=== PATIENT | male | born 1985 | race Caucasian/White ===

== ENCOUNTER 2017-02-23 09:14 | Emergency (ER) | payer MEDICAID, OTHER ==
[2017-02-23] MEDS ORDERED: HYDROcod/ACETAM 5/325 MG TABLET PO STA (10:43)
[2017-02-23] MEDS ORDERED: CLINDAMYCIN 900 MG/50 ML 50 ML IV ONE ×2 (10:43→10:52)
--- NOTE | 2017-02-23 10:46 | ED Physician Documentation ---
PD HPI HEENT - Stated complaint Stated Complaint: DENTAL PAIN - Chief complaint Chief Complaint: General - History obtained from History obtained from: Patient - History of Present Illness Timing - onset: Last night Timing - details: Gradual onset Location: Tooth Associated symptoms: Facial swelling - Additional information Additional information: The patient is a 32-year-old who presents with toothache and left facial swelling. His symptoms started last night, and are worse this morning. He reports mild associated headache. He denies fever or sore throat. He reports a history of toothache in the past, but never this bad. Review of Systems Constitutional: denies: Fever Eyes: denies: Irritation Ears: denies: Ear pain Nose: denies: Congestion Throat: denies: Sore throat Cardiac: denies: Chest pain / pressure Respiratory: denies: Dyspnea, Cough GI: denies: Nausea, Vomiting Skin: denies: Rash Musculoskeletal: denies: Neck pain Neurologic: reports: Headache (mild) PD PAST MEDICAL HISTORY - Past Medical History Cardiovascular: Hypertension Respiratory: Other Neuro: CVA - Past Surgical History Past Surgical History: Yes - Present Medications Home Medications: Ambulatory Orders Medication Instructions Recorded Confirmed Clindamycin [Cleocin] 300 mg PO Q6H 7 Days 02/23/17 HYDROcod/ACETAM 5/325 [Satanta 5/325] 1 - 2 ea PO Q6H PRN #20 tablet 02/23/17 Oxycodone HCl/Acetaminophen 1 - 2 each PO Q6H PRN #10 tablet 02/24/17 [Percocet 5-325 mg Tablet] - Allergies Allergies/Adverse Reactions: Allergies Allergy/AdvReac Type Severity Reaction Status Date / Time No Known Drug Allergies Allergy Verified 02/23/17 09:24 - Social History Does the pt smoke?: No Smoking Status: Never smoker Does the pt drink ETOH?: No Does the pt have substance abuse?: No - Immunizations Immunizations are current?: Yes - POLST Patient has POLST: No PD ED PE NORMAL - Vitals Vital signs reviewed: Yes (Borderline hypertension initially.) - General General: Alert and oriented X 3, Well developed/nourished - HEENT HEENT: Atraumatic, PERRL, EOMI, Ears normal, Pharynx benign, Other (Left facial swelling in the maxillary region. Most of his molars have been extracted. Left upper molar is markedly decayed with associated tenderness to palpation.) - Cardiac Cardiac: RRR, No murmur - Respiratory Respiratory: No respiratory distress, Clear bilaterally - Abdomen Abdomen: Soft, Non tender - Back Back: No CVA TTP - Derm Derm: No rash - Extremities Extremities: No edema - Neuro Neuro: Alert and oriented X 3, No motor deficit, Normal speech Results - Vitals Vitals: Oxygen O2 Source Room air PD MEDICAL DECISION MAKING - ED course Complexity details: re-evaluated patient, considered differential, d/w patient ED course: The patient's presentation is significant for dental abscess. There is no clinical indication of meningitis, peritonsillar or retropharyngeal abscess. Treatment in the Emergency Department included Clindamycin, 600 mg IV, and Vicodin one tablet orally I discussed with him the likely course of symptoms, antibiotic treatment, outpatient follow up, as well as potentially worrisome signs or symptoms that should prompt re-evaluation in the Emergency Dept. He is being discharged with prescriptions for Clindamicin and Vicodin, 20 tablets. Departure - Departure Disposition: 01 Home, Self Care Clinical Impression: Dental abscess Instructions: ED Abscess Dental Prescriptions: Clindamycin [Cleocin] 300 mg PO Q6H 7 Days HYDROcod/ACETAM 5/325 [Satanta 5/325] 1 - 2 ea PO Q6H PRN #20 tablet PRN Reason: Pain Comments: Take the antibiotic 4 times daily as prescribed. You can use Vicodin as prescribed if needed for pain. Follow up with a dentist as soon as possible. Return to the emergency department if you develop increasing facial swelling, or otherwise worsening symptoms. Discharge Date/Time: 02/23/17 12:17
[2017-02-23] MEDS ORDERED: HYDROcod/ACETAM 5/325 MG TABLET ONE (10:52)
[2017-02-23 12:17] VITALS: BP 127/73
== END 2017-02-23 12:17 | disposition home or self-care (01) ==
LOC: ED 09:14
DX: K04.7 Periapical abscess without sinus (principal); I10 Essential (primary) hypertension
CPT/HCPCS: 96365; 99283; A9270

== ENCOUNTER 2017-02-24 09:57 | Emergency (ER) | payer MEDICAID ==
--- NOTE | 2017-02-24 12:14 | ED Physician Documentation ---
PD HPI HEENT - Stated complaint Stated Complaint: TOOTH PAIN - Chief complaint Chief Complaint: Heent - History obtained from History obtained from: Patient - History of Present Illness Timing - onset: How many days ago (2) Timing - duration: Days (2) Timing - details: Gradual onset Pain level max: 6 Pain level now: 5 Location: Tooth (upper molar, L) Improves: Nothing Worsens: Swalllowing Associated symptoms: Facial swelling. No: Fever, Congestion, Rhinorrhea, Trismus, Unable to swallow Similar symptoms before: Diagnosis (dental caries) Recently seen: Emergency Dept (yesterday, started on clindamycin, swelling worse today.) Review of Systems Constitutional: denies: Fever, Chills Respiratory: denies: Cough GI: denies: Nausea, Vomiting, Diarrhea Skin: denies: Rash Musculoskeletal: denies: Neck pain, Back pain Neurologic: denies: Headache PD PAST MEDICAL HISTORY - Past Medical History Past Medical History: Yes Cardiovascular: Hypertension Respiratory: Other Neuro: CVA - Past Surgical History Past Surgical History: Yes - Present Medications Home Medications: Ambulatory Orders Medication Instructions Recorded Confirmed Clindamycin [Cleocin] 300 mg PO Q6H 7 Days 02/23/17 HYDROcod/ACETAM 5/325 [Savage 5/325] 1 - 2 ea PO Q6H PRN #20 tablet 02/23/17 Oxycodone HCl/Acetaminophen 1 - 2 each PO Q6H PRN #10 tablet 02/24/17 [Percocet 5-325 mg Tablet] - Allergies Allergies/Adverse Reactions: Allergies Allergy/AdvReac Type Severity Reaction Status Date / Time No Known Drug Allergies Allergy Verified 02/23/17 09:24 - Social History Does the pt smoke?: No Smoking Status: Never smoker Does the pt drink ETOH?: No Does the pt have substance abuse?: No - Immunizations Immunizations are current?: Yes - POLST Patient has POLST: No PD ED PE NORMAL - Vitals Vital signs reviewed: Yes - General General: Alert and oriented X 3, No acute distress, Well developed/nourished - HEENT HEENT: PERRL, Moist mucous membranes, Other (L upper gingival abscess. mild facial swelling.) - Neck Neck: Supple, no meningeal sign - Cardiac Cardiac: RRR, Strong equal pulses - Respiratory Respiratory: No respiratory distress, Clear bilaterally - Abdomen Abdomen: Soft, Non tender, Non distended - Derm Derm: Warm and dry - Neuro Neuro: Alert and oriented X 3 - Psych Psych: Normal mood, Normal affect Results - Vitals Vitals: Vital Signs - 24 hr 02/24/17 02/24/17 10:03 14:15 Temperature 36.3 C L 37.2 C Heart Rate 75 79 Respiratory 17 22 Rate Blood Pressure 147/91 H 138/88 H O2 Saturation 100 100 Oxygen O2 Source Room air Procedures - Abscess I&D (location) L upper gingival Preparation: Confirmed with ultrasound, Marcaine 0.5% Incision: Needle aspiration (18g) Other: Pt tolerated well, Antibiotic prescribed (on clindamycin) PD MEDICAL DECISION MAKING - ED course Complexity details: reviewed old records, re-evaluated patient, considered differential, d/w patient, d/w family (father) ED course: Patient with a left upper gingival abscess. This was drained with needle aspiration in the emergency department after being confirmed by bedside ultrasound. He was also given a dose of Rocephin intramuscularly here. Will continue the clindamycin at home and follow-up with a dentist for further care of his tooth and likely extraction. No fevers. Tolerating p.o. without difficulty. No trismus. Patient counseled regarding signs and symptoms for which I believe and urgent re-evaluation would be necessary. Patient with good understanding of and agreement to plan and is comfortable going home at this time This document was made in part using voice recognition software. While efforts are made to proofread this document, sound alike and grammatical errors may occur. Departure - Departure Disposition: 01 Home, Self Care Clinical Impression: Dental abscess Condition: Good Instructions: ED Abscess Dental Follow-Up: your,dentist as soon as possible [Other] Prescriptions: Oxycodone HCl/Acetaminophen [Percocet 5-325 mg Tablet] 1 - 2 each PO Q6H PRN # 10 tablet PRN Reason: pain Comments: Continue your anitbiotics at home. Return if you worsen. Do not drink alcohol or drive while on narcotic pain medicine. Note that many narcotic pain relievers also contain tylenol/acetaminophen. Please ensure that your total dose of acetaminophen from all sources does not exceed 3 grams (3000mg) per day. You may constipated on this medication, take a stool softener such as "Colace" twice a day while you are on it. Also recommend a [id number] laxative such as senna or MiraLAX any day that you do not have a bowel movement. If you received narcotic pain medication in the emergency department, do not drive or operate machinery for the next 24 hours. Your blood pressure was elevated today on check in to the emergency department. This does not mean that you have hypertension, it is a common phenomenon to check into the emergency department and have elevated blood pressure. I recommend that you see your primary care physician within the week to have it rechecked when you're feeling better. Discharge Date/Time: 02/24/17 14:15
[2017-02-24] MEDS ORDERED: BUPIVACAINE 0.5% PF 30 ML VIAL ONE (12:27)
[2017-02-24] MEDS ORDERED: BUPIVACAINE 0.5% PF 30 ML VIAL SUBQ STA (12:27)
[2017-02-24] MEDS ORDERED: cefTRIAXone 1 GM VIAL IM STA (13:32)
[2017-02-24] MEDS ORDERED: cefTRIAXone 1 GM VIAL ONE (13:39)
[2017-02-24] MEDS ORDERED: LIDOCAINE 1% 2 ML VIAL ONE (13:39)
[2017-02-24 14:16] VITALS: BP 138/88
== END 2017-02-24 14:15 | disposition home or self-care (01) ==
LOC: ED 09:57
DX: K04.7 Periapical abscess without sinus (principal); I10 Essential (primary) hypertension; Z86.73 Personal history of transient ischemic attack (TIA), and cerebral infarction without residual deficits
CPT/HCPCS: 41800; 96372; 99282; 99283

== ENCOUNTER 2017-06-21 16:09 | Emergency (ER) | payer MEDICAID ==
[2017-06-21] MEDS ORDERED: oxyCOD/ACETAMIN 5 MG/325 MG TABLET PO STA (17:57)
[2017-06-21] MEDS ORDERED: AMOXICILLIN 250 MG CAPSULE PO STA (17:57)
[2017-06-21] MEDS ORDERED: IBUPROFEN 400 MG TABLET PO STA (17:57)
[2017-06-21] MEDS ORDERED: AMOXICILLIN 250 MG CAPSULE PO ONE (18:04)
[2017-06-21] MEDS ORDERED: IBUPROFEN 400 MG TABLET PO ONE (18:04)
[2017-06-21] MEDS ORDERED: oxyCODONE/ACET 5/325 Prepack 4 PO ONE (18:05)
[2017-06-21] MEDS ORDERED: oxyCOD/ACETAMIN 5 MG/325 MG TABLET PO ONE (18:05)
--- NOTE | 2017-06-21 18:21 | ED Physician Documentation ---
History of Present Illness - Stated complaint Stated Complaint: TOOTH PX - Chief complaint Chief Complaint: Heent - Additonal information Additional information: hx from pt 32 male healthy except for a stroke recent dental extraction at [facility] now with more right upper dental pain and some swelling no fever Review of Systems Constitutional: denies: Fever, Chills Throat: reports: Dental pain / toothache PD PAST MEDICAL HISTORY - Past Medical History Cardiovascular: Hypertension Respiratory: Other Neuro: CVA - Past Surgical History Past Surgical History: Yes HEENT: Other - Present Medications Home Medications: Ambulatory Orders Medication Instructions Recorded Confirmed Ibuprofen [Motrin] 400 mg PO Q6H PRN #30 tablet 06/21/17 Oxycodone HCl/Acetaminophen 1 each PO Q6HR PRN #6 tablet 06/21/17 [Percocet 5-325 mg Tablet] Penicillin Vk 500 mg PO Q8H 10 Days 06/21/17 - Allergies Allergies/Adverse Reactions: Allergies Allergy/AdvReac Type Severity Reaction Status Date / Time No Known Drug Allergies Allergy Verified 06/21/17 16:57 - Social History Does the pt smoke?: No Smoking Status: Never smoker Does the pt drink ETOH?: No Does the pt have substance abuse?: No - Immunizations Immunizations are current?: Yes - POLST Patient has POLST: No PD ED PE NORMAL - Vitals Vital signs reviewed: Yes - HEENT HEENT: No: Dentition benign (extensive decay, recent extraction sites look fine , no selling or dry socket, teeth adjacent to extractions are also significantly decayed and tender, no trismus, no visible abscess to drain) - Neck Neck: Supple, no meningeal sign - Cardiac Cardiac: RRR - Respiratory Respiratory: No respiratory distress, Clear bilaterally Results - Vitals Vitals: Vital Signs - 24 hr 06/21/17 16:54 Temperature 36.5 C Heart Rate 79 Respiratory 20 Rate Blood Pressure 160/95 H O2 Saturation 97 Oxygen O2 Source Room air Departure - Departure Disposition: 01 Home, Self Care Clinical Impression: Dental abscess Condition: Good Instructions: ED Abscess Dental Prescriptions: Oxycodone HCl/Acetaminophen [Percocet 5-325 mg Tablet] 1 each PO Q6HR PRN #6 tablet PRN Reason: Severe Pain Ibuprofen [Motrin] 400 mg PO Q6H PRN #30 tablet PRN Reason: Pain Penicillin Vk 500 mg PO Q8H 10 Days Comments: Please follow up with [facility] dental for further care - the antibiotics are only a temporary fix And follow up with your PMD to recheck your blood pressure - it was high today
[2017-06-21 18:40] VITALS: BP 132/92
== END 2017-06-21 18:40 | disposition home or self-care (01) ==
LOC: ED 16:09
DX: K04.7 Periapical abscess without sinus (principal); I10 Essential (primary) hypertension; Z86.73 Personal history of transient ischemic attack (TIA), and cerebral infarction without residual deficits
CPT/HCPCS: 99283; A9270

== ENCOUNTER 2017-06-28 00:12 | Emergency (ER) | payer MEDICAID ==
[2017-06-28 00:19] VITALS: BP 135/79
[2017-06-28] MEDS ORDERED: CLINDAMYCIN 150 MG CAPSULE PO STA (01:44)
[2017-06-28] MEDS ORDERED: HYDROcod/ACET 5/325 Prepack 6 PO ONE ×2 (01:45→01:58)
--- NOTE | 2017-06-28 01:47 | ED Physician Documentation ---
PD HPI HEENT - Stated complaint Stated Complaint: MOUTH PAIN - Chief complaint Chief Complaint: Heent - History obtained from History obtained from: Patient, Family - History of Present Illness Timing - onset: How many weeks ago (1) Timing - duration: Weeks (1) Timing - details: Gradual onset, Still present Location: Tooth Improves: Medication Worsens: Everything Associated symptoms: Facial swelling Similar symptoms before: Diagnosis (abscessed tooth) Recently seen: Emergency Dept (one week ago) - Additional information Additional information: 30-year-old male seen in the emergency department 1 week ago for an abscessed tooth he has had progression of symptoms despite treatment with Penicillin VK. He has pain swelling in his face and no drainage from the area.He does have a dentist and has an appointment to see him in 4 days. Review of Systems Constitutional: denies: Fever Eyes: denies: Decreased vision Ears: denies: Ear pain Nose: reports: Congestion Throat: reports: Dental pain / toothache Respiratory: denies: Dyspnea, Cough GI: denies: Vomiting PD PAST MEDICAL HISTORY - Past Medical History Past Medical History: Yes Cardiovascular: Hypertension Respiratory: Other Neuro: CVA - Past Surgical History Past Surgical History: Yes HEENT: Other - Present Medications Home Medications: Ambulatory Orders Medication Instructions Recorded Confirmed Ibuprofen [Motrin] 400 mg PO Q6H PRN #30 tablet 06/21/17 06/28/17 Oxycodone HCl/Acetaminophen 1 each PO Q6HR PRN #6 tablet 06/21/17 06/28/17 [Percocet 5-325 mg Tablet] Penicillin Vk 500 mg PO Q8H 10 Days 06/21/17 06/28/17 Clindamycin [Cleocin] 300 mg PO Q6H #28 capsule 06/28/17 - Allergies Allergies/Adverse Reactions: Allergies Allergy/AdvReac Type Severity Reaction Status Date / Time No Known Drug Allergies Allergy Verified 06/28/17 00:19 - Social History Does the pt smoke?: No Smoking Status: Never smoker Does the pt drink ETOH?: No Does the pt have substance abuse?: No - Immunizations Immunizations are current?: Yes - POLST Patient has POLST: No PD ED PE NORMAL - Vitals Vital signs reviewed: Yes (Hypertensive mild) - General General: No acute distress, Well developed/nourished - HEENT HEENT: Atraumatic, PERRL, EOMI, Other (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 There is facial swelling over the area as well ) - Neck Neck: Supple, no meningeal sign, No adenopathy - Respiratory Respiratory: No respiratory distress - Derm Derm: Normal color, Warm and dry, No rash - Extremities Extremities: No deformity, No edema - Neuro Neuro: No motor deficit, No sensory deficit - Psych Psych: Normal mood, Normal affect PD ED PE EXPANDED - HEENT HEENT Visual: 1 - abscess, swelling, tenderness Results - Vitals Vitals: Vital Signs - 24 hr 06/28/17 00:16 Temperature 36.4 C L Heart Rate 85 Respiratory 17 Rate Blood Pressure 135/79 H O2 Saturation 100 Oxygen O2 Source Room air PD MEDICAL DECISION MAKING - ED course Complexity details: reviewed old records, considered differential, d/w patient, d/w family ED course: 32 y/o male with a dental abscess that has not responded to penvk and he is switched to clindamycin and he is dispensed hydrocodone. Departure - Departure Disposition: 01 Home, Self Care Clinical Impression: Dental abscess Condition: Stable Instructions: ED Abscess Dental Follow-Up: [facility] [Provider Group] Prescriptions: Clindamycin [Cleocin] 300 mg PO Q6H #28 capsule Comments: Today in the Emergency Department your blood pressure was elevated. This can happen from the stress of the visit itself, from a current illness or circumstance or from uncontrolled hypertension. If you take blood pressure medications take your usual mediations, have your blood pressure re-checked in an appropriate setting and follow up any elevation with your primary care doctor. Discharge Date/Time: 06/28/17 02:00
[2017-06-28] MEDS ORDERED: CLINDAMYCIN 150 MG CAPSULE PO ONE (01:58)
== END 2017-06-28 02:00 | disposition home or self-care (01) ==
LOC: ED 00:12
DX: K04.7 Periapical abscess without sinus (principal); I10 Essential (primary) hypertension; Z86.73 Personal history of transient ischemic attack (TIA), and cerebral infarction without residual deficits
CPT/HCPCS: 99283; A9270

== ENCOUNTER 2018-02-04 15:25 | Emergency (ER) | payer MEDICAID ==
[2018-02-04 15:29] VITALS: BP 159/98
[2018-02-04] MEDS ORDERED: HYDROcod/ACETAM 5/325 MG TABLET PO STA (15:58)
[2018-02-04] MEDS ORDERED: PENICILLIN VK 250 MG TABLET PO STA (15:58)
--- NOTE | 2018-02-04 16:01 | ED Physician Documentation ---
History of Present Illness - Stated complaint Stated Complaint: TOOTH PX - Chief complaint Chief Complaint: Heent - History obtained from History obtained from: Patient - History of Present Illness Timing: How many days ago (4) Pain level max: 8 Pain level now: 6 - Additonal information Additional information: Patient is a 33-year-old male who presents to the emergency department with a right upper tooth pain. Is been ongoing for the past 4 days. Is seen at [facility] for dentistry. No fevers. No drainage. Pain was slightly better with Motrin. Nothing makes it worse. Review of Systems Constitutional: denies: Fever, Chills Respiratory: denies: Cough GI: denies: Vomiting, Diarrhea Skin: denies: Rash Musculoskeletal: denies: Neck pain, Back pain Neurologic: denies: Headache PD PAST MEDICAL HISTORY - Past Medical History Past Medical History: Yes Cardiovascular: Hypertension Respiratory: Other Neuro: CVA - Past Surgical History Past Surgical History: Yes HEENT: Other - Present Medications Home Medications: Ambulatory Orders Medication Instructions Recorded Confirmed Hydrocodone/Acetaminophen 1 - 2 each PO Q6H PRN #14 tablet 02/04/18 [Hydrocodon-Acetaminophen 5-325] Ibuprofen [Motrin] 800 mg PO Q8H PRN #30 tablet 02/04/18 Penicillin V Potassium 500 mg PO Q6HR #40 tablet 02/04/18 - Allergies Allergies/Adverse Reactions: Allergies Allergy/AdvReac Type Severity Reaction Status Date / Time No Known Drug Allergies Allergy Verified 02/04/18 15:29 - Social History Does the pt smoke?: No Smoking Status: Never smoker Does the pt drink ETOH?: No Does the pt have substance abuse?: No - Immunizations Immunizations are current?: Yes - POLST Patient has POLST: No PD ED PE NORMAL - Vitals Vital signs reviewed: Yes - General General: Alert and oriented X 3, No acute distress - HEENT HEENT: Moist mucous membranes - Neck Neck: Supple, no meningeal sign, No adenopathy - Derm Derm: Warm and dry - Neuro Neuro: Alert and oriented X 3 - Psych Psych: Normal mood, Normal affect PD ED PE EXPANDED - HEENT HEENT Visual: 1 - tenderness (No gingival swelling or abscess.) Results - Vitals Vitals: Vital Signs - 24 hr 02/04/18 15:27 Temperature 36.0 C L Heart Rate 87 Respiratory 18 Rate Blood Pressure 159/98 H O2 Saturation 100 Oxygen O2 Source Room air PD MEDICAL DECISION MAKING - ED course Complexity details: considered differential, d/w patient ED course: Patient is a 33-year-old male who presents to the emergency department with right upper tooth pain. No drainable abscess. No facial swelling or cellulitis. Will place on antibiotics and pain medication and follow-up with his dentist. Patient counseled regarding signs and symptoms for which I believe and urgent re-evaluation would be necessary. Patient with good understanding of and agreement to plan and is comfortable going home at this time This document was made in part using voice recognition software. While efforts are made to proofread this document, sound alike and grammatical errors may occur. Departure - Departure Disposition: 01 Home, Self Care Clinical Impression: Dental caries Condition: Good Instructions: ED Tooth Pain Follow-Up: your,dentist in 3 days [Other] Prescriptions: Penicillin V Potassium 500 mg PO Q6HR #40 tablet Hydrocodone/Acetaminophen [Hydrocodon-Acetaminophen 5-325] 1 - 2 each PO Q6H PRN #14 tablet PRN Reason: pain Ibuprofen [Motrin] 800 mg PO Q8H PRN #30 tablet PRN Reason: PAIN &/OR FEVER Comments: Take all antibiotics until gone. Return if you worsen. Do not drink alcohol or drive while on narcotic pain medicine. Note that many narcotic pain relievers also contain tylenol/acetaminophen. Please ensure that your total dose of acetaminophen from all sources does not exceed 3 grams (3000mg) per day. You may constipated on this medication, take a stool softener such as "Colace" twice a day while you are on it. Also recommend a [id number]-kwtlldy laxative such as senna or MiraLAX any day that you do not have a bowel movement. If you received narcotic pain medication in the emergency department, do not drive or operate machinery for the next 24 hours.
== END 2018-02-04 16:07 | disposition home or self-care (01) ==
LOC: ED 15:25
DX: K02.9 Dental caries, unspecified (principal); I10 Essential (primary) hypertension; Z86.73 Personal history of transient ischemic attack (TIA), and cerebral infarction without residual deficits
CPT/HCPCS: 99283; A9270

== ENCOUNTER 2019-06-07 21:21 | Emergency (ER) | payer MEDICAID ==
[2019-06-07] MEDS ORDERED: LIDOCAINE 2%-EPI 1:100000 20 ML MDV SUBQ STA (21:27)
[2019-06-07 21:29] VITALS: BP 136/77
--- NOTE | 2019-06-07 21:30 | ED Physician Documentation ---
History of Present Illness - Stated complaint Stated Complaint: LOOSE TOOTH - History obtained from History obtained from: Patient - History of Present Illness Timing: Today (broke a tooth tonight while chewing.) Review of Systems Constitutional: reports: Reviewed and negative Eyes: reports: Reviewed and negative Ears: reports: Reviewed and negative PD PAST MEDICAL HISTORY - Past Medical History Cardiovascular: Hypertension Respiratory: Other - Past Surgical History Past Surgical History: Yes HEENT: Other - Present Medications Home Medications: Ambulatory Orders Medication Instructions Recorded Confirmed No Known Home Medications 06/07/19 06/07/19 - Allergies Allergies/Adverse Reactions: Allergies Allergy/AdvReac Type Severity Reaction Status Date / Time No Known Drug Allergies Allergy Verified 06/07/19 21:30 - Social History Does the pt smoke?: No Smoking Status: Never smoker Does the pt drink ETOH?: No Does the pt have substance abuse?: No - Immunizations Immunizations are current?: Yes - POLST Patient has POLST: No PD ED PE NORMAL - Vitals Vital signs reviewed: Yes - General General: Alert and oriented X 3, No acute distress - HEENT HEENT: Other (Generally bad dentition. Only part of tooth left on upper R canine which is loose.) - Neuro Neuro: Alert and oriented X 3, Normal speech Results - Vitals Vitals: Vital Signs - 24 hr 06/07/19 21:25 Temperature 37 C Heart Rate 96 Respiratory 16 Rate Blood Pressure 136/77 H O2 Saturation 98 Oxygen O2 Source Room air PD MEDICAL DECISION MAKING - ED course ED course: The tooth was quite loose, he requested removal. It was actually only a part of a tooth. A block was done in standard fashion with lidocaine with epinephrine and then using hemostatic came out very easily. Departure - Departure Disposition: 01 Home, Self Care Clinical Impression: Dental caries Condition: Good Record reviewed to determine appropriate education?: Yes Instructions: ED Tooth Pain, ED Cavity Dental Comments: It is very important that you follow-up with a dentist. When it comes to dental problems like yours, the emergency department can only offer a short-term solution to your long-term problem. A couple of low cost options for dental care include: [facility] in [place], calls [phone] for an appointment Or [facility] in [place], call [phone] for an appointment.
== END 2019-06-07 21:57 | disposition home or self-care (01) ==
LOC: ED 21:21
DX: K02.9 Dental caries, unspecified (principal); I10 Essential (primary) hypertension
CPT/HCPCS: 99281; 99282

== ENCOUNTER 2019-11-29 12:11 | Emergency (ER) | payer MEDICAID ==
[2019-11-29 12:23] VITALS: BP 140/87
[2019-11-29] MEDS ORDERED: TETANUS/DIPHTHERIA/PERTUSSIS 0.5 ML SYRINGE IM ONE (13:52)
[2019-11-29] MEDS ORDERED: BACITRACIN ZINC OINT 1 PACKET TOP STA (13:52)
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
--- NOTE | 2019-11-29 15:01 | XRAY Report ---
Reason: smashed pinky Procedure Date: 11/29/2019 Accession Number: [id number] / [id number] Procedure: XR - Finger(s) LT CPT Code: Final Report FULL RESULT: EXAM: Left fifth DIGIT RADIOGRAPHY EXAM DATE: 11/29/2019 01:28 PM. CLINICAL HISTORY: Smashed pinky. COMPARISON: None. TECHNIQUE: 3 views. FINDINGS: Bones: Normal. No fracture or bone lesion. Joints: Normal. No subluxations. Soft Tissues: Normal. No soft tissue swelling. IMPRESSION: Normal digit radiography. RADIA
== END 2019-11-29 14:10 | disposition home or self-care (01) ==
LOC: ED 12:11
DX: S61.307A Unspecified open wound of left little finger with damage to nail, initial encounter (principal); W23.0XXA Caught, crushed, jammed, or pinched between moving objects, initial encounter
CPT/HCPCS: 73140; 90471; 99283; 99284; A9270

== ENCOUNTER 2021-02-19 20:09 | Emergency (ER) | payer MEDICAID ==
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
[2021-02-19] MEDS ORDERED: CYCLOBENZAPRINE 10 MG TABLET PO STA (23:13)
[2021-02-19] MEDS ORDERED: IBUPROFEN 600 MG TABLET PO STA (23:13)
[2021-02-19 23:26] VITALS: BP 120/85
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
== END 2021-02-19 23:26 | disposition home or self-care (01) ==
LOC: ED 20:09
DX: S16.1XXA Strain of muscle, fascia and tendon at neck level, initial encounter (principal); S50.312A Abrasion of left elbow, initial encounter; M25.512 Pain in left shoulder; R51.9 Headache, unspecified; V48.5XXA Car driver injured in noncollision transport accident in traffic accident, initial encounter; Y92.410 Unspecified street and highway as the place of occurrence of the external cause; I69.398 Other sequelae of cerebral infarction; G93.89 Other specified disorders of brain; I10 Essential (primary) hypertension
CPT/HCPCS: 70450; 72125; 73030; 99284; A9270

== ENCOUNTER 2021-07-04 12:29 | Emergency (ER) | payer MEDICAID ==
[2021-07-04 12:35] VITALS: BP 160/90
[2021-07-04] MEDS ORDERED: AMOXICILLIN 250 MG CAPSULE PO STA (12:44)
[2021-07-04] MEDS ORDERED: HYDROcod/ACETAM 5/325 MG TABLET PO STA (12:44)
--- NOTE | 2021-07-04 12:46 | ED Physician Documentation ---
PD HPI HEENT - Stated complaint Stated Complaint: MOUTH PX - Chief complaint Chief Complaint: Heent - History obtained from History obtained from: Patient - Additional information Additional information: 36-year-old gentleman with generally bad teeth who has not seen a dentist in many years presents with 2 days of pain focused from a left maxillary canine. No fevers. Review of Systems Constitutional: denies: Fever, Chills Nose: denies: Rhinorrhea / runny nose Throat: denies: Sore throat Cardiac: reports: Reviewed and negative PD PAST MEDICAL HISTORY - Past Medical History Cardiovascular: Hypertension Respiratory: Other Neuro: CVA Endocrine/Autoimmune: None GI: None : None HEENT: None Psych: None Musculoskeletal: None Derm: None - Past Surgical History Past Surgical History: Yes HEENT: Other - Present Medications Home Medications: Ambulatory Orders Medication Instructions Recorded Confirmed Amoxicillin 500 mg PO TID #30 cap 07/04/21 HYDROcod/ACETAM 5/325 [[place] 5/325] 1 - 2 tab PO Q6H PRN #15 tablet 07/04/21 Ibuprofen [Motrin] 800 mg PO Q8H PRN #30 tablet 07/04/21 - Allergies Allergies/Adverse Reactions: Allergies Allergy/AdvReac Type Severity Reaction Status Date / Time No Known Drug Allergies Allergy Verified 07/04/21 12:32 - Social History Does the pt smoke?: No Smoking Status: Never smoker Does the pt drink ETOH?: No Does the pt have substance abuse?: No - Immunizations Immunizations are current?: Yes - POLST Patient has POLST: No PD ED PE NORMAL - Vitals Vital signs reviewed: Yes - General General: Alert and oriented X 3, No acute distress - HEENT HEENT: Other (Really very poor dentition, the top teeth are half gone and the ones remaining are edentulous down to the gumline. He is tender to the left maxilla with very mild facial swelling. No trismus or sublingual edema.) - Neuro Neuro: Alert and oriented X 3, Normal speech - Psych Psych: Normal mood, Normal affect Results - Vitals Vitals: Vital Signs - 24 hr 07/04/21 12:32 Temperature 36.5 C Heart Rate 82 Respiratory 16 Rate Blood Pressure 160/90 H O2 Saturation 100 Oxygen O2 Source Room air PD MEDICAL DECISION MAKING - ED course ED course: I am prescribing a short course of short-acting opioid pain medication for this patient. 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 I have discussed that the opioids are for short term therapy only, and will not be refilled from the ED. Departure - Departure Disposition: 01 Home, Self Care Clinical Impression: Dental caries, Dental abscess Condition: Good Record reviewed to determine appropriate education?: Yes Instructions: ED [facility] Prescriptions: Amoxicillin 500 mg PO TID #30 cap Ibuprofen [Motrin] 800 mg PO Q8H PRN #30 tablet PRN Reason: PAIN &/OR FEVER HYDROcod/ACETAM 5/325 [[place] 5/325] 1 - 2 tab PO Q6H PRN #15 tablet PRN Reason: Pain Comments: It is very important that you follow-up with a dentist. When it comes to dental problems like yours, the emergency department can only offer a short-term solution to your long-term problem. A couple of low cost options for dental care include: [facility] in [place], calls [phone] for an appointment Or [facility] in [place], call [phone] for an appointment. I am prescribing a short course of narcotic pain medication for you. These are potentially dangerous and addictive medications that should be used carefully. These medications may constipate you. Take an lach-dkj-edphroz stool softener (docusate) twice daily with plenty of water while taking these medications. If you go 24 hours without a bowel movement, take qzhu-mcc-qygkivq miralax, per package instructions. Do not drink or drive while taking these medications. If you received narcotic or sedating medications while in the emergency department, do not drive for 24 hours. Store this medication in a safe, secure place and out of reach of children. It is a violation of federal law to give or sell this medication to another person or to use in a manner other than prescribed. The ED will not refill narcotic prescriptions, including prescriptions lost or stolen. To dispose of unwanted medications: 1. [facility] [address] in [place] has a medication drop box. They accept prescription medications (in pill form) Monday through Monday 9:00 a.m. to 5:00 p.m. 2. [facility] accepts prescription medications (in pill form only) for disposal year round. Call for more information. 3. Contact the [facility] for the next [facility] sponsored prescription drug collection event. , [phone], or [phone]; Note that many narcotic pain relievers also contain Tylenol/acetaminophen. Please ensure that your total dose of acetaminophen from all sources does not exceed 3 g (3000 mg) per day.
== END 2021-07-04 12:58 | disposition home or self-care (01) ==
LOC: ED 12:29
DX: K02.9 Dental caries, unspecified (principal); K04.7 Periapical abscess without sinus
CPT/HCPCS: 99283; A9270

== ENCOUNTER 2021-07-07 09:47 | Emergency (ER) | payer MEDICAID ==
[2021-07-07] MEDS ORDERED: LIDOCAINE 1% 2 ML VIAL MC ONE (12:02)
[2021-07-07] MEDS ORDERED: cefTRIAXone 1 GM VIAL IM STA (12:02)
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
[2021-07-07 12:23] VITALS: BP 127/78
== END 2021-07-07 12:38 | disposition home or self-care (01) ==
LOC: ED 09:47
DX: K04.7 Periapical abscess without sinus (principal); K08.89 Other specified disorders of teeth and supporting structures; R51.9 Headache, unspecified; M54.2 Cervicalgia; I10 Essential (primary) hypertension; Z72.0 Tobacco use
CPT/HCPCS: 96372; 99283

== ENCOUNTER 2021-07-08 17:57 | Emergency (ER) | payer MEDICAID ==
[2021-07-08 19:09] LABS: EOSINOPHILS % (AUTO) 0.3 %; HCT - HEMATOCRIT 47.3 % (42.0-52.0); HGB - HEMOGLOBIN 14.9 g/dL (14.0-18.0); LYMPHOCYTES # (AUTO) 1.1 10^3/uL (1.5-3.5); LYMPHOCYTES % (AUTO) 35.7 %; MEAN CORPUSCULAR HEMOGLOBIN 30.1 pg (27.0-31.0); MEAN CORPUSCULAR HGB CONC 31.5 g/dL (32.0-36.0); MEAN CORPUSCULAR VOLUME 95.6 fL (80.0-94.0); MEAN PLATELET VOLUME 8.7 fL (7.4-11.4); MONOCYTES # (AUTO) 0.3 10^3/uL (0.0-1.0); MONOCYTES % (AUTO) 11.1 %; NEUTROPHILS # (AUTO) 1.5 10^3/uL (1.5-6.6); NEUTROPHILS % (AUTO) 51.6 %; PLT - PLATELET COUNT 234 10^3/uL (130-450); RED BLOOD COUNT 4.95 10^6/uL (4.70-6.10); RED CELL DISTRIBUTION WIDTH 13.5 % (12.0-15.0)
[2021-07-08 19:23] LABS: ALBUMIN 3.9 g/dL (3.2-5.5); BILIRUBIN,TOTAL 0.5 mg/dL (0.2-1.0); CALCIUM 8.6 mg/dL (8.5-10.3); POTASSIUM 4.5 mmol/L (3.5-5.0); TOTAL PROTEIN 7.8 g/dL (6.7-8.2)
--- NOTE | 2021-07-08 19:35 | ED Physician Documentation ---
History of Present Illness - Stated complaint Stated Complaint: WEAK - Chief complaint Chief Complaint: General - History obtained from History obtained from: Patient - Additonal information Additional information: 36-year-old man with history of poor dentition presents with weakness for the past week, chills, and request for Covid test today. no other complaints. he is scheduled to see a dentist in July. Review of Systems Constitutional: reports: Chills, Myalgias, Fatigue. denies: Fever Neurologic: reports: Generalized weakness PD PAST MEDICAL HISTORY - Past Medical History Cardiovascular: Hypertension Respiratory: Asthma, Other Neuro: CVA Endocrine/Autoimmune: None GI: None : None HEENT: None Psych: None Musculoskeletal: Chronic back pain Derm: None - Past Surgical History Past Surgical History: Yes HEENT: Other - Present Medications Home Medications: Ambulatory Orders Medication Instructions Recorded Confirmed Amoxicillin 500 mg PO TID #30 cap 07/04/21 07/07/21 HYDROcod/ACETAM 5/325 [[place] 5/325] 1 - 2 tab PO Q6H PRN #15 tablet 07/04/21 07/07/21 Ibuprofen [Motrin] 800 mg PO Q8H PRN #30 tablet 07/04/21 07/07/21 Clindamycin [Cleocin] 450 mg PO TID #63 cap 07/07/21 - Allergies Allergies/Adverse Reactions: Allergies Allergy/AdvReac Type Severity Reaction Status Date / Time No Known Drug Allergies Allergy Verified 07/07/21 10:10 - Social History Does the pt smoke?: No Smoking Status: Never smoker Does the pt drink ETOH?: No Does the pt have substance abuse?: No - Immunizations Immunizations are current?: No Immunizations: Other immun not current - POLST Patient has POLST: No PD ED PE NORMAL - Vitals Vital signs reviewed: Yes - General General: Alert and oriented X 3, No acute distress, Well developed/nourished - HEENT HEENT: Atraumatic, PERRL, EOMI, Other (poor dentition) - Cardiac Cardiac: RRR - Respiratory Respiratory: No respiratory distress, Clear bilaterally - Derm Derm: Normal color, Warm and dry - Extremities Extremities: No deformity - Neuro Neuro: Alert and oriented X 3 Results - Vitals Vitals: Vital Signs - 24 hr 07/08/21 07/08/21 18:05 19:46 Temperature 36.9 C 36.8 C Heart Rate 98 90 Respiratory 18 16 Rate Blood Pressure 140/82 H 130/80 O2 Saturation 98 98 Oxygen O2 Source Room air - Labs Labs: Laboratory Tests 07/08/21 07/08/21 07/08/21 19:05 19:05 19:05 WBC 3.0 L RBC 4.95 Hgb 14.9 Hct 47.3 MCV 95.6 H MCH 30.1 MCHC 31.5 L RDW 13.5 Plt Count 234 MPV 8.7 Neut # (Auto) 1.5 Lymph # (Auto) 1.1 L Cooper # (Auto) 0.3 Eos # (Auto) 0.0 Baso # (Auto) 0.0 Absolute Nucleated RBC 0.00 Nucleated RBC % 0.0 Sodium 133 L Potassium 4.5 Chloride 93 L Carbon Dioxide 29 Anion Gap 11.0 BUN 14 Creatinine 1.0 Estimated GFR (MDRD) 85 L Glucose 115 H Calcium 8.6 Total Bilirubin 0.5 AST 31 ALT 31 Alkaline Phosphatase 62 Total Protein 7.8 Albumin 3.9 Globulin 3.9 Albumin/Globulin Ratio 1.0 Lipase 32 TSH 0.80 PD MEDICAL DECISION MAKING - ED course ED course: Covid test performed per patient request. Advised him to quarantine at home until results come back. Return precautions given. Patient will follow up with his primary doctor and with dental. Departure - Departure Disposition: 01 Home, Self Care Clinical Impression: Weakness Condition: Good Instructions: COVID-19 [facility], COVID-19 [facility] Department Statement Comments: You were seen in the emergency department for covid swab. It will result in 2-3 days but you should quarantine at home until then. Please return to the emergency department if you have shortness of breath, severe chest pain or new or worsening symptoms. Follow up with your primary doctor via telehealth. Discharge Date/Time: 07/08/21 19:46
[2021-07-08 19:47] VITALS: BP 130/80
== END 2021-07-08 19:46 | disposition home or self-care (01) ==
LOC: ED 17:57
DX: U07.1 COVID-19 (principal)
CPT/HCPCS: 36415; 80053; 83690; 84443; 85025; 99282; 99283

== ENCOUNTER 2022-11-17 09:48 | Outpatient (CLI) | payer MEDICAID ==
--- NOTE | 2022-11-17 11:22 | XRAY Report ---
PROCEDURE: Knee 4 View RT INDICATIONS: RIGHT KNEE PAIN TECHNIQUE: 4 views of the right knee(s) were acquired. COMPARISON: Right knee radiographs 11/13/2022 from [facility] FINDINGS: Bones: No significant change in the previously demonstrated mildly displaced fibula head fracture. T ricompartmental degenerative changes of the right knee, moderate-severe at the patellofemoral compart ment, mild at medial and lateral compartments. Mild degenerative changes of the left knee on the incl uded single frontal view of the left knee. Soft tissues: No large joint effusion. No suspicious soft tissue calcifications. IMPRESSION: Redemonstrated fibular head fracture and degenerative changes of the right knee. Reviewed by: Isauro Sapp MD on 11/17/2022 11:20 AM PST Approved by: Isauro Sapp MD on 11/17/2022 11:20 AM PST Station ID: [id number]
== END 2022-11-17 09:49 | disposition home or self-care (01) ==
LOC: DI.WOS 09:48
PROVIDERS: ATTEND Orthopaedic Surgery
DX: M17.11 Unilateral primary osteoarthritis, right knee (principal)

== ENCOUNTER 2022-12-29 15:30 | Outpatient (CLI) | payer MEDICAID ==
--- NOTE | 2022-12-29 13:15 | XRAY Report ---
PROCEDURE: Knee 3 View RT INDICATIONS: LEFT KNEE PROX FIBULA HEAD FRACTURE TECHNIQUE: 4 views of the right knee(s) were acquired. COMPARISON: 11/17/2022 FINDINGS: Bones: Tricompartmental joint space narrowing with associated osteophytosis. Interval bone remodelin g of the fibular head fracture. Soft tissues: No joint effusion. No suspicious soft tissue calcifications. IMPRESSION: 1.Slight interval healing of the fibular head fracture. 2.Mild tricomponent osteoarthritis. Reviewed by: Ervin Allison on 12/29/2022 1:14 PM PDT Approved by: Ervin Allison on 12/29/2022 1:14 PM PDT Station ID: [id number]
== END 2022-12-29 15:31 | disposition home or self-care (01) ==
LOC: DI.WOS 15:30
PROVIDERS: ATTEND Orthopaedic Surgery
DX: S82.831D Other fracture of upper and lower end of right fibula, subsequent encounter for closed fracture with routine healing (principal); M17.11 Unilateral primary osteoarthritis, right knee

== ENCOUNTER 2023-01-21 13:46 | Emergency (ER) | payer MEDICAID ==
[2023-01-21 14:09] VITALS: BP 153/85
[2023-01-21] MEDS ORDERED: ERYTHROMYCIN OPHTH OINT 1 GM TUBE LEFTEYE STA (16:05)
--- NOTE | 2023-01-21 16:07 | ED Physician Documentation ---
PD HPI OPHTHO - Stated complaint Stated Complaint: LT EYE BLURRY - Chief complaint Chief Complaint: Heent - History obtained from History obtained from: Patient - Additional information Additional information: 37-year-old gentleman with no need for vision correction or contacts presents with a couple of days worth of left eye pain and photophobia. In contrast to the nurses notes he denies cough or cold symptoms to me. 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 PD PAST MEDICAL HISTORY - Past Medical History Cardiovascular: Hypertension Respiratory: Asthma, Other Neuro: CVA Endocrine/Autoimmune: None GI: None : None HEENT: None Psych: None Musculoskeletal: Chronic back pain Derm: None - Past Surgical History Past Surgical History: Yes HEENT: Other - Present Medications Home Medications: Ambulatory Orders Medication Instructions Recorded Confirmed Amoxicillin 500 mg PO TID #30 cap 07/04/21 07/07/21 HYDROcod/ACETAM 5/325 [[place] 5/325] 1 - 2 tab PO Q6H PRN #15 tablet 07/04/21 07/07/21 Ibuprofen [Motrin] 800 mg PO Q8H PRN #30 tablet 07/04/21 07/07/21 Clindamycin [Cleocin] 450 mg PO TID #63 cap 07/07/21 Erythromycin Base [Erythromycin 1 appful OP 5XD 7 Days #1 gm 01/21/23 Ophthalmic Ointment] - Allergies Allergies/Adverse Reactions: Allergies Allergy/AdvReac Type Severity Reaction Status Date / Time No Known Drug Allergies Allergy Verified 01/21/23 14:09 - Social History Does the pt smoke?: No Smoking Status: Never smoker Does the pt drink ETOH?: No Does the pt have substance abuse?: No - Immunizations Immunizations are current?: No Immunizations: Other immun not current - POLST Patient has POLST: No PD ED PE NORMAL - Vitals Vital signs reviewed: Yes - General General: Alert and oriented X 3, No acute distress - HEENT HEENT: PERRL, EOMI, Other (He is photophobic in the left eye with conjunctivitis, there is a metallic foreign body inferolateral on the left cornea with rust ring.) - Neuro Neuro: Alert and oriented X 3, Normal speech - Psych Psych: Normal mood, Normal affect Results - Vitals Vitals: Vital Signs - 24 hr 01/21/23 14:05 Temperature 36.5 C Heart Rate 90 Respiratory 16 Rate Blood Pressure 153/85 H O2 Saturation 100 Oxygen O2 Source Room air PD Medical Decision Making - ED course ED course: After the administration of proparacaine he was pain-free, using a combination of a moistened Q-tip and tweezers I was able to remove the corneal foreign body. Departure - Departure Disposition: Home, Self Care Clinical Impression: Corneal rust ring of left eye Corneal foreign body Qualifiers: Encounter type: initial encounter Laterality: left Qualified Code(s): T15.02XA - Foreign body in cornea, left eye, initial encounter Condition: Good Record reviewed to determine appropriate education?: Yes Instructions: ED Foreign Body Cornea W Rust Ring Follow-Up: Fran Varghese MD [Provider Admit Priv/Credential] - Prescriptions: Erythromycin Base [Erythromycin Ophthalmic Ointment] 1 appful OP 5XD 7 Days #1 gm Comments: You were seen today for metallic foreign body that we were able to remove. Given that it has been there for a few days there is what is known is a rust ring and you do need to follow-up with the shoe cobbler on Monday for further evaluation and treatment. Call his office first thing Monday for an appointment. Return if worsening.
== END 2023-01-21 16:21 | disposition home or self-care (01) ==
LOC: ED 13:46
DX: T15.02XA Foreign body in cornea, left eye, initial encounter (principal); W45.8XXA Other foreign body or object entering through skin, initial encounter; Y93.89 Activity, other specified
CPT/HCPCS: 65220; 99282; J3490

== ENCOUNTER 2023-08-11 15:12 | Emergency (ER) | payer MEDICAID ==
[2023-08-11 16:17] LABS: BASOPHILS # (AUTO) 0.1 10^3/uL (0.0-0.1); BASOPHILS % (AUTO) 0.6 %; EOSINOPHILS # (AUTO) 0.2 10^3/uL (0.0-0.7); EOSINOPHILS % (AUTO) 2.2 %; HCT - HEMATOCRIT 40.2 % (42.0-52.0); HGB - HEMOGLOBIN 12.9 g/dL (14.0-18.0); LYMPHOCYTES # (AUTO) 2.2 10^3/uL (1.5-3.5); LYMPHOCYTES % (AUTO) 24.6 %; MEAN CORPUSCULAR HEMOGLOBIN 29.7 pg (27.0-31.0); MEAN CORPUSCULAR HGB CONC 32.1 g/dL (32.0-36.0); MEAN CORPUSCULAR VOLUME 92.6 fL (80.0-94.0); MEAN PLATELET VOLUME 8.3 fL (7.4-11.4); MONOCYTES # (AUTO) 0.9 10^3/uL (0.0-1.0); MONOCYTES % (AUTO) 9.5 %; NEUTROPHILS # (AUTO) 5.6 10^3/uL (1.5-6.6); NEUTROPHILS % (AUTO) 61.8 %; PLT - PLATELET COUNT 519 10^3/uL (130-450); RED BLOOD COUNT 4.34 10^6/uL (4.70-6.10); RED CELL DISTRIBUTION WIDTH 13.6 % (12.0-15.0)
--- NOTE | 2023-08-11 16:31 | ED Physician Documentation ---
PD HPI SKIN - Stated complaint Stated Complaint: RT LEG SWOLLEN - Chief complaint Chief Complaint: Ext Problem - History obtained from History obtained from: Patient - History of Present Illness Timing - onset: How many days ago (8-9) Timing - duration: Days (8-9) Timing - details: Gradual onset (he noted some pain in heel with split skin without drainage. Developed swelling and redness there and up to lower leg over few days. Seen at other ER adn he states had labs and US a week ago without clots/abn labs. Rx with Keflex for cellulitis. He states persistently worse despite meds. No fevers.), Still present Location: [facility] Quality / character: Painful, Discolored (red), Swelling (from mid lower leg to foot). No: Vesicular, Draining Improved by: No: Antibiotics (keflex for the past 7 days.) Contributing factors: Recent illness Similar symptoms before: Has not had sx before Recently seen: Emergency Dept (1 week ago for this with labs and US per fortunato.) Review of Systems Constitutional: denies: Fever, Chills Cardiac: denies: Chest pain / pressure, Palpitations Respiratory: denies: Dyspnea, Cough GI: denies: Abdominal Pain, Nausea, Vomiting, Diarrhea Neurologic: denies: Focal weakness, Numbness PD PAST MEDICAL HISTORY - Past Medical History Cardiovascular: Hypertension Respiratory: Asthma, Other Neuro: CVA Endocrine/Autoimmune: None GI: None : None HEENT: None Psych: None Musculoskeletal: Chronic back pain Derm: None - Past Surgical History Past Surgical History: Yes HEENT: Other - Present Medications Home Medications: Ambulatory Orders Medication Instructions Recorded Confirmed Doxycycline Hyclate 100 mg PO BID 7 Days #14 cap 08/11/23 HYDROcod/ACETAM 5/325 [[place] 5/325] 1 ea PO Q6H PRN #15 tablet 08/11/23 Meloxicam [Mobic] 7.5 mg PO BID 10 Days #20 tablet 08/11/23 Mupirocin 2% Oint [Bactroban 2% 1 applic TOP TID #15 gm 08/11/23 Oint] cefaDROXiL [Cefadroxil] 1 gm PO DAILY 10 Days #10 tablet 08/11/23 cephALEXin [Keflex] 500 mg PO Q6H 08/11/23 08/11/23 - Allergies Allergies/Adverse Reactions: Allergies Allergy/AdvReac Type Severity Reaction Status Date / Time No Known Drug Allergies Allergy Verified 01/21/23 14:09 - Social History Does the pt smoke?: No Smoking Status: Never smoker Does the pt drink ETOH?: No Does the pt have substance abuse?: No - Immunizations Immunizations are current?: No Immunizations: Other immun not current - POLST Patient has POLST: No PD ED PE NORMAL - Vitals Vital signs reviewed: Yes - General General: Alert and oriented X 3, No acute distress, Well developed/nourished - Cardiac Cardiac: RRR, No murmur - Respiratory Respiratory: No respiratory distress, Clear bilaterally - Abdomen Abdomen: Soft, Non tender - Derm Derm: Normal color, Warm and dry - Extremities Extremities: Other (right lower leg without swelling nor tenderness at knee or just below. Tenderness starts mid lower leg down to ankle with redness/warmth/swelling. Foot with swellingedema without tenderness nor redness. Heel with split in skin/dry. No purulence. Left leg without edema/redness. ) - Neuro Neuro: Alert and oriented X 3, No motor deficit, No sensory deficit Results - Vitals Vitals: Vital Signs - 24 hr 08/11/23 08/11/23 15:36 17:53 Temperature 36.6 C 36.6 C Heart Rate 92 82 Respiratory 20 18 Rate Blood Pressure 157/85 H 123/72 O2 Saturation 99 100 Oxygen O2 Source Room air - Labs Labs: Laboratory Tests 08/11/23 08/11/23 08/11/23 16:14 16:14 16:14 WBC 9.0 RBC 4.34 L Hgb 12.9 L Hct 40.2 L MCV 92.6 MCH 29.7 MCHC 32.1 RDW 13.6 Plt Count 519 H MPV 8.3 Neut # (Auto) 5.6 Lymph # (Auto) 2.2 [place] # (Auto) 0.9 Eos # (Auto) 0.2 Baso # (Auto) 0.1 Absolute Nucleated RBC 0.00 Nucleated RBC % 0.0 Sodium 138 Potassium 3.9 Chloride 104 Carbon Dioxide 28 Anion Gap 6.0 BUN 15 Creatinine 1.0 Estimated GFR (MDRD) 84 L Glucose 92 Calcium 9.3 Total Creatine Kinase 110 - Rads (name of study) duplex US right leg Relevant Findings:: Prelim report reviewed, Other (from [employer] - no DVT. ) PD Medical Decision Making - ED course Complexity details: reviewed results (normal WBC and no elevation of CK, suggesting not deeper infection nor muscle involvement. Does looklike cellulitis and is not location for gout,etc. Can change abx to broader cephalosporin and add Doxy for staph coverage.), considered differential (has redness and swelling right lower leg, initiating around heel with dry/split skin. Has increased to lower leg. No change with Keflex for past 7 days. ), d/w patient Departure - Departure Disposition: 01 Home, Self Care Clinical Impression: Cellulitis, Lower leg pain Condition: Stable Record reviewed to determine appropriate education?: Yes Prescriptions: Mupirocin 2% Oint [Bactroban 2% Oint] 1 applic TOP TID #15 gm cefaDROXiL [Cefadroxil] 1 gm PO DAILY 10 Days #10 tablet Doxycycline Hyclate 100 mg PO BID 7 Days #14 cap Meloxicam [Mobic] 7.5 mg PO BID 10 Days #20 tablet HYDROcod/ACETAM 5/325 [[place] 5/325] 1 ea PO Q6H PRN #15 tablet PRN Reason: Pain Comments: Your ultrasound again does not show any signs of blood clots. Your infection of the foot and skin have not improved on your current antibiotic. We will try changing to a combination of 2 antibiotics instead as well as a topical antibiotic for the heel/open sore. Continue with the elevation of the foot and also some warm towels to the area to help improve blood flow and help fight off infection. For the pain of 8 we can institute some anti-inflammatories called meloxicam twice daily with food and to that add Tylenol every 4-6 hours if needed or hydrocodone/acetaminophen if needed for worse pain. I sent your prescriptions to your preferred pharmacy. I would hope this combination would allow improvement over the next several days and resolved over 3 to 5 days. Recheck if not improving well in that timeframe and return if worsening still. Your blood count is good without any elevation of your white count. Other blood test did not show any signs of muscle breakdown so does not seem to be into a deeper layer. At this point I do not see any obvious signs of pus pockets or abscesses that need draining. I am prescribing a short course of narcotic pain medication for you. These are potentially dangerous and addictive medications that should be used carefully. These medications may constipate you. Take an qufv-rha-dgoeymw stool softener such as docusate twice daily with plenty of water while taking these medications. If you go 24 hours without a bowel movement, take qgoi-qux-[id number] MiraLAX, per package instructions. Do not drink or drive while taking these medications. If you received narcotic or sedating medications while in the emergency department do not drive for 24 hours. Store this medication in a safe, secure place and out of reach of children. It is a violation of federal law to give or sell this medication to another person or to use in a manner other than prescribed. The ED will not refill narcotic prescriptions, including prescriptions lost or stolen. You can dispose of unwanted medications at the [facility]'s office or at several pharmacies such as [facility]. Forms: PCP List Discharge Date/Time: 08/11/23 17:53
[2023-08-11 16:53] LABS: CALCIUM 9.3 mg/dL (8.5-10.3); POTASSIUM 3.9 mmol/L (3.5-4.5)
--- NOTE | 2023-08-11 17:23 | Ultrasound Report ---
PROCEDURE: Duplex Ext Veins Right INDICATIONS: leg swelling TECHNIQUE: Real-time imaging, as well as color and pulse Doppler interrogation, were performed of the lower extr emity deep veins from the inguinal ligament to the popliteal fossa. Attempted visualization of the ca lf veins was performed. COMPARISON: None. FINDINGS: The deep veins are normally compressible, and free of intraluminal thrombus. Color and pu lse Doppler demonstrate normal phasic intraluminal flow. There is normal augmentation response to di stal compression maneuver. Moderately prominent right inguinal lymph nodes are noted. There is mild uniform cortical thickening. Mild subcutaneous edema in the calf. IMPRESSION: 1. No DVT in the right lower extremity. 2. Mild subcutaneous edema. 3. Reactive adenopathy. Consider cellulitis. 4. Preliminary results given by the greenhouse transplanter to the ordering provider immediately following the st udy. Reviewed by: Mckenzie Galaviz MD on 08/11/2023 5:22 PM PDT Approved by: Mckenzie Galaviz MD on 08/11/2023 5:22 PM PDT Station ID: [id number]
[2023-08-11] MEDS ORDERED: KETOROLAC 30 MG/ML VIAL IM STA (17:24)
[2023-08-11] MEDS ORDERED: DOXYCYCLINE 100 MG TABLET PO STA (17:24)
[2023-08-11] MEDS ORDERED: cefTRIAXone 1 GM VIAL IM STA (17:24)
[2023-08-11] MEDS ORDERED: LIDOCAINE 1% 2 ML VIAL MC ONE (17:24)
[2023-08-11 18:00] VITALS: BP 123/72; O2SAT 100
== END 2023-08-11 17:53 | disposition home or self-care (01) ==
LOC: ED 15:12
DX: L03.115 Cellulitis of right lower limb (principal)
CPT/HCPCS: 36415; 80048; 82550; 85025; 93971; 96372; 99284; A9270

== ENCOUNTER 2023-10-01 18:48 | Emergency (ER) | payer MEDICAID ==
[2023-10-01 19:00] VITALS: BP 157/87; O2SAT 96
--- NOTE | 2023-10-01 19:40 | XRAY Report ---
PROCEDURE: Wrist 4 View RT INDICATIONS: Trauma TECHNIQUE: 4 views of the wrist were acquired. COMPARISON: Correlation is made with the accompanying hand plain films. FINDINGS: Bones: No fractures or dislocations. No suspicious bony lesions. No scaphoid fractures are seen. Soft tissues: Apparent soft tissue gas can be seen along the radial aspect of the wrist. There is a 1 mm likely foreign body seen between the second and third metacarpal heads. IMPRESSION: Apparent soft tissue gas along the radial aspect of the wrist. 1 mm apparent foreign body seen between the second and third metacarpal heads. Please correlate with prior injury at this site. No fractures or dislocations can be seen. Reviewed by: Franklin Wu MD on 10/01/2023 6:39 PM [facility] Approved by: Franklin Wu MD on 10/01/2023 6:39 PM [facility] Station ID: [id number]
--- NOTE | 2023-10-01 19:41 | XRAY Report ---
PROCEDURE: Hand 3+V RT INDICATIONS: Trauma TECHNIQUE: 3 views of the hand(s) acquired. COMPARISON: Correlation is made with the accompanying wrist plain films. FINDINGS: Bones: No fractures or dislocations. No suspicious bony lesions. Soft tissues: Mild apparent soft tissue gas can be seen. There is a 1 mm the piriform body seen betw een the second and third metacarpal heads. IMPRESSION: Apparent 1 mm foreign body seen between the second and third metacarpal heads. Please correlate with prior injury at this site. No mono acute bony abnormality is seen. Apparent soft tissue gas. Reviewed by: Franklin Wu MD on 10/01/2023 6:40 PM [facility] Approved by: Franklin Wu MD on 10/01/2023 6:40 PM [facility] Station ID: [id number]
[2023-10-01] MEDS ORDERED: TETANUS/DIPHTHERIA/PERTUSSIS 0.5 ML SYRINGE IM ONE (19:47)
--- NOTE | 2023-10-01 19:47 | ED Physician Documentation ---
PD HPI UPPER EXT INJURY - Stated complaint Stated Complaint: RT HAND INJ - Chief complaint Chief Complaint: Ext Problem - History obtained from History obtained from: Patient - Additonal information Additional information: 38-year-old male presents for injury to right forearm. 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 He states he also thinks that cellulitis in his lower extremity is acting up. Denies numbness, weakness of the right hand or wrist. It is painful to move but he has movement and sensation. Does not think he is up-to-date on tetanus Review of Systems Constitutional: denies: Fever, Chills Cardiac: denies: Chest pain / pressure, Palpitations, Calf pain Respiratory: denies: Dyspnea, Cough, Wheezing GI: denies: Abdominal Pain, Nausea, Vomiting, Constipation, Diarrhea Musculoskeletal: reports: Extremity pain. denies: Neck pain, Back pain, Joint pain PD PAST MEDICAL HISTORY - Past Medical History Cardiovascular: Hypertension Respiratory: Asthma, Other Neuro: CVA Endocrine/Autoimmune: None GI: None : None HEENT: None Psych: None Musculoskeletal: Chronic back pain Derm: None - Past Surgical History Past Surgical History: Yes HEENT: Other - Present Medications Home Medications: Ambulatory Orders Medication Instructions Recorded Confirmed Doxycycline Hyclate 100 mg PO BID 7 Days #14 cap 08/11/23 HYDROcod/ACETAM 5/325 [[place] 5/325] 1 ea PO Q6H PRN #15 tablet 08/11/23 Meloxicam [Mobic] 7.5 mg PO BID 10 Days #20 tablet 08/11/23 Mupirocin 2% Oint [Bactroban 2% 1 applic TOP TID #15 gm 08/11/23 Oint] cefaDROXiL [Cefadroxil] 1 gm PO DAILY 10 Days #10 tablet 08/11/23 cephALEXin [Keflex] 500 mg PO Q6H 08/11/23 08/11/23 Doxycycline Hyclate 100 mg PO BID #12 tab 10/01/23 - Allergies Allergies/Adverse Reactions: Allergies Allergy/AdvReac Type Severity Reaction Status Date / Time No Known Drug Allergies Allergy Verified 01/21/23 14:09 - Social History Does the pt smoke?: No Smoking Status: Never smoker Does the pt drink ETOH?: No Does the pt have substance abuse?: No - Immunizations Immunizations are current?: No Immunizations: Other immun not current - POLST Patient has POLST: No PD ED PE NORMAL - Vitals Vital signs reviewed: Yes - General General: Alert and oriented X 3, No acute distress, Well developed/nourished - Cardiac Cardiac: RRR, Strong equal pulses - Respiratory Respiratory: No respiratory distress, Clear bilaterally - Abdomen Abdomen: Soft, Non tender, Non distended - Derm Derm: Other (punctate wound medial volar R wrist. Minimal surrounding warmth. No crepitus) - Extremities Extremities: No deformity, Other (ROM intact with pain. Cap refill 2+, Sensation equal bilaterally) - Neuro Neuro: Alert and oriented X 3, airfreight operations agent 2-12 intact, No motor deficit, Normal speech Results - Vitals Vitals: Vital Signs - 24 hr 10/01/23 10/01/23 18:55 18:57 Temperature 37 C Heart Rate 96 96 Respiratory 18 18 Rate Blood Pressure 157/87 H 157/87 H O2 Saturation 96 96 Oxygen O2 Source Room air PD Medical Decision Making - ED course Complexity details: reviewed results, re-evaluated patient, considered differential, d/w patient ED course: Accidntal injury to R wrist. Neurovascularly intact. Patient is worried that he may have cellulitis in his right lower extremity, however these appear to be chronic venous stasis changes, there is no warmth, no erythema, no induration to suggest acute infection. Tetanus shot updated in the emergency department. X- ray shows no retained foreign body at the site of the nail entry. Patient will be given prophylactic antibiotics due to the depth of the nail injury and for infection prevention. Departure - Departure Disposition: 01 Home, Self Care Clinical Impression: Injury by nail Condition: Stable Instructions: ED Wound Care Prescriptions: Doxycycline Hyclate 100 mg PO BID #12 tab Forms: PCP List Discharge Date/Time: 10/01/23 20:45
[2023-10-01] MEDS ORDERED: DOXYCYCLINE 100 MG TABLET PO STA ×2 (20:33)
== END 2023-10-01 20:45 | disposition home or self-care (01) ==
LOC: ED 18:48
DX: S61.531A Puncture wound without foreign body of right wrist, initial encounter (principal); W45.0XXA Nail entering through skin, initial encounter; Y92.69 Other specified industrial and construction area as the place of occurrence of the external cause; Y99.0 Civilian activity done for income or pay
CPT/HCPCS: 73110; 73130; 90471; 90715; 99283; A9270

== ENCOUNTER 2023-12-01 10:40 | Emergency (ER) | payer MEDICAID ==
[2023-12-01 10:56] VITALS: BP 168/94; O2SAT 97
--- NOTE | 2023-12-01 11:11 | ED Physician Documentation ---
PD HPI LOWER EXT INJURY - Stated complaint Stated Complaint: RT LEG PX,SWELLING, - Chief complaint Chief Complaint: Ext Problem - History obtained from History obtained from: Patient - History of Present Illness PD HPI LOW EXT INJURY LOCATION: Right, Lower leg (anterior lower leg with redness and warmth, mild tender. Has had some skin superficial sores for months, with episodes of worse redness at times. Seen for it Aug 2023 and Oct 2023, with Rx of Keflex, then Doxy/mupirocin.) Type of injury: No: Blunt / blow Timing - onset: How many days ago (has had increased redness/swelling for severald ays now. No dranage. No calf tenderness. No fevers/aches.) Timing - details: Gradual onset, Still present, Waxing and waning Worsened by: Palpating Associated symptoms: Swelling, Discolored (redness anterior right lower leg.). No: Weakness, Numbness Similar symptoms before: Diagnosis (treated like cellulitis in past with improvement but not full resolution, still with some redness chroncially. Few episdoes of worsening. Seen Aug for simliar and Rx with Doxycycline, mupirocin.) PD PAST MEDICAL HISTORY - Past Medical History Cardiovascular: Hypertension Respiratory: Asthma, Other Neuro: CVA Endocrine/Autoimmune: None GI: None : None HEENT: None Psych: None Musculoskeletal: Chronic back pain Derm: None - Past Surgical History Past Surgical History: Yes HEENT: Other - Present Medications Home Medications: Ambulatory Orders Medication Instructions Recorded Confirmed Doxycycline Hyclate 100 mg PO BID 7 Days #14 cap 08/11/23 HYDROcod/ACETAM 5/325 [[place] 5/325] 1 ea PO Q6H PRN #15 tablet 08/11/23 Meloxicam [Mobic] 7.5 mg PO BID 10 Days #20 tablet 08/11/23 Mupirocin 2% Oint [Bactroban 2% 1 applic TOP TID #15 gm 08/11/23 Oint] cefaDROXiL [Cefadroxil] 1 gm PO DAILY 10 Days #10 tablet 08/11/23 cephALEXin [Keflex] 500 mg PO Q6H 08/11/23 08/11/23 Doxycycline Hyclate 100 mg PO BID #12 tab 10/01/23 Chlorhexidine Gluconate [Hibiclens] 15 ml TP DAILY #236 ml 12/01/23 Mupirocin 2% Oint [Bactroban 2% 1 applic TOP TID #15 gm 12/01/23 Oint] Sulfamethox/Trimeth 800/160 1 each PO BID #14 tablet 12/01/23 [Bactrim Ds 800/160] - Allergies Allergies/Adverse Reactions: Allergies Allergy/AdvReac Type Severity Reaction Status Date / Time No Known Drug Allergies Allergy Verified 12/01/23 10:47 - Social History Does the pt smoke?: No Smoking Status: Never smoker Does the pt drink ETOH?: No Does the pt have substance abuse?: No - Immunizations Immunizations are current?: No Immunizations: Other immun not current - POLST Patient has POLST: No PD ED PE NORMAL - Vitals Vital signs reviewed: Yes - General General: Alert and oriented X 3, No acute distress, Well developed/nourished - Extremities Extremities: Normal ROM s pain, No calf tenderness / cord Results - Vitals Vitals: Vital Signs - 24 hr 12/01/23 10:45 Temperature 36.5 C Heart Rate 84 Respiratory 18 Rate Blood Pressure 168/94 H O2 Saturation 97 Oxygen O2 Source Room air PD Medical Decision Making - ED course Complexity details: reviewed results (prior lab tests have shown normal creatinine and GFR (61 most recent). So, I feel can use Bactrim DS and mupirocin. ), considered differential (having redness and swelling anterior right lower leg. Prior history of recurrent cellulitis. He does not appear ill. Vitals are godd without pointing toward sepsis. I believe can treat empirically but more toward staph.), d/w patient Departure - Departure Disposition: 01 Home, Self Care Clinical Impression: Recurrent cellulitis of lower leg Condition: Stable Record reviewed to determine appropriate education?: Yes Instructions: ED Infec Skin Cellulitis Follow-Up: SLADE LOPEZ MD [Physician No Access] - [facility] [Provider Group] Prescriptions: Sulfamethox/Trimeth 800/160 [Bactrim Ds 800/160] 1 each PO BID #14 tablet Mupirocin 2% Oint [Bactroban 2% Oint] 1 applic TOP TID #15 gm Chlorhexidine Gluconate [Hibiclens] 15 ml TP DAILY #236 ml Comments: Clean the skin area once or twice daily with soap and water and apply mupirocin antibiotic ointment. He can have a dressing over the area to help keep it clean. It can help with some of the swelling as well if you use an Howard wrap. It does seem likely a recurrent infection although sometimes inflammatory skin conditions can cause this instead. There is no drainage on which to do a culture etc. so we will make a best guess at infection in the antibiotic choice. Previously you have been prescribed a cephalosporin and also doxycycline with episodes of this. Since it did not completely clear (though has not increased so must have been partly effective), we can try a different antibiotic. I would try 1 called Bactrim twice daily for the next week. Also topical mupirocin antibiotic ointment. Cleanse whole body in particular also around the legs with Hibiclens/chlorhexidine body wash daily with your showers. Follow-up with your primary care and also could follow-up with infectious disease and or dermatology. I sent your prescriptions to your preferred pharmacy. Forms: PCP List Discharge Date/Time: 12/01/23 12:33
[2023-12-01] MEDS: MUPIROCIN 2% OINT 1 GM TOP STA (12:27)
[2023-12-01] MEDS: SULFAMETH/TRIMETH DS 800/160 MG TABLET PO STA (12:27)
== END 2023-12-01 12:33 | disposition home or self-care (01) ==
LOC: ED 10:40
DX: L03.115 Cellulitis of right lower limb (principal); I10 Essential (primary) hypertension; Z79.899 Other long term (current) drug therapy
CPT/HCPCS: 99283; A9270